=== PATIENT | female | born 1960 | race Caucasian/White ===

== ENCOUNTER → 2019-04-04 17:22 | Outpatient (CLI) | payer MEDICARE ==
[~2019-04-04 17:22] MED LIST: AMBIEN10 MG PO; BUSPAR10 MG PO; ESTRACE 0.5 MG0.5 MG PO; LISINOPRIL10 MG PO; METOPROLO; MORPHINE SULFAT15 M4 PO; MORPHINE SULFAT30 M4 PO; MUCINEX600 MG PO; NORVASC5 MG PO; OMNICEF300 MG PO; PROAIR HFA8.5 GM INH; PROVERA2.5 MG PO; SOMA350 MG PO; SONATA10 MG PO; TESSALON PERLE100 MG PO; TOPROL XL50 MG PO; VALTREX1000 MG PO; XANAX1 MG PO; ZANAFLEX4 MG PO; ZOLOFT100 MG PO
== END | disposition home or self-care (01) ==
LOC: D.LABREF 17:22
PROVIDERS: ATTEND Orthopaedic Surgery
DX: M17.12 Unilateral primary osteoarthritis, left knee (principal)

== ENCOUNTER 2019-04-05 12:56 | Inpatient (IN) | payer MEDICARE ==
[~2019-04-05] VITALS: Ht 167.6 cm; Wt 111.8 kg
[2019-05-23] MEDS ORDERED: TRAZODONE HCL150 MG PO (12:57)
[2019-05-24 11:20] LABS: HEMATOCRIT 40.9 % (36.0-48.0); HEMOGLOBIN 13.4 g/dL (12-16); MCH 31.1 pg (26.0-34.0); MCHC 32.8 g/dL (31.0-37.0); MCV 94.9 fL (80.0-100.0); RBC 4.31 10x6/uL (4.00-5.40); RDW 13.2 % (11.5-14.5); WBC 9.3 10x3/uL (4.8-10.8)
[2019-05-24 11:21] LABS: BASOPHILS 0.2 % (0-2); IMMATURE GRANULOCYTES 0.2 % (0-5); LYMPHOCYTES 19.5 % (15-50); MONOCYTES 8.1 % (2-11)
[2019-05-24 11:25] LABS: PLATELET COUNT 321 10x3/uL (130-400)
[2019-05-24] MEDS ORDERED: GEODON40 MG PO (11:27)
[2019-05-24] MEDS ORDERED: VALTREX1000 MG PO (11:28)
[2019-05-24] MEDS ORDERED: PEPCID AC20 MG PO (11:29)
[2019-05-24] MEDS ORDERED: IBUPROFEN800 MG PO (11:32)
[2019-05-24] MEDS ORDERED: CYMBALTA60 MG PO (11:32)
[2019-05-24] MEDS ORDERED: ATARAX 25 MG TA25 MG PO (11:33)
[2019-05-24] MEDS ORDERED: SEROQUEL100 MG PO (11:34)
[2019-05-24] MEDS ORDERED: LISINOPRIL40 MG PO (11:36)
[2019-05-24] MEDS ORDERED: HYDROCODON-ACE1 EAC7 PO (11:36)
[2019-05-24] MEDS ORDERED: OMEPRAZOLE40 MG PO (11:37)
[2019-05-24] MEDS ORDERED: LIPITOR10 MG PO (11:37)
[2019-05-24 11:38] LABS: APTT 30.4 SECONDS (22.8-39.4); INR 0.97 (0.85-1.17); PROTIME 12.8 SECONDS (11.6-15.0)
[2019-05-24 11:39] LABS: ANION GAP 9.1 mmol/L (8-16); CARBON DIOXIDE 32.9 mmol/L (21.0-32.0); CREATININE - SERUM 1.1 mg/dL (0.6-1.3)
[2019-05-24 12:11] LABS: APPEARANCE CLEAR (CLEAR); BACTERIA FEW /hpf (NEGATIVE); BILIRUBIN NEGATIVE (NEGATIVE); COLOR YELLOW (YELLOW); EPITHELIAL CELLS OCC /hpf (0-5); GLUCOSE NEGATIVE (NEGATIVE); KETONE NEGATIVE (NEGATIVE); NITRITE NEGATIVE (NEGATIVE); PROTEIN NEGATIVE (NEGATIVE); RED CELLS - URINE 0-5 /hpf (0-5); UROBILINOGEN NORMAL (NORMAL)
[2019-05-24 12:12] LABS: WHITE CELLS - URINE RARE /hpf (NEGATIVE)
[2019-05-29 08:59] VITALS: BP 112/92; BMI 39.8
--- NOTE | 2019-05-29 10:48 | NUR ---
PREPPED FROM MID THIGH TO TOES WITH ALCOHOL AND HIBACLENS. STERILE GOWNED AND GLOVED AND PREPPED AGAIN FROM MID THIGH TO TOES WITH CHLORAPREP. ADMINISTERED TOBRA AND VANC TO BACK FIELD WHILE STERILE GLOVED.
[2019-05-29 11:43] VITALS: BP 106/67
--- NOTE | 2019-05-29 11:47 | NUR ---
PT RECIEVED FROM RECOVERY TO ROOM 2213 VIA BED. PT AWAKE ALERT AND ORIENTED. IV TO RIGHT FOREARM INTACT. DRESSING TO LEFT LOWER EXTREMITY C/D/I ICE PACK INTACT. PERIPHERAL PULSE PALPABLE. ORIENTED TO ROOM, CL AND BED CONTROLS. CL WITHIN REACH. ENCUORAGED TO CALL WITH NEEDS. CONTINUE POC
[2019-05-29 13:25] VITALS: BP 106/67; BMI 39.8
[2019-05-29 16:14] VITALS: BP 114/74
--- NOTE | 2019-05-29 19:25 | NUR ---
PT SITTING UP IN BED WITHOUT DISTRESS, AOX4. SPOUSE AT BEDSIDE. IV RIGHT FA INFUSING 1/2NS @ 100. ON ROOM AIR. LUNGS CTA. BOWEL SOUNDS ACTIVE. STATES LEFT LEG IS STILL NUMB. IN CPM AT THIS TIME. SCD TO RIGHT LEG. BED ALARM ON. NON SLIP SOCKS IN PLACE. REFUSES YELLOW GOWN, WANTS TO PUT ON HER OWN GOWN. DENIES OTHER NEEDS AT THIS TIME. CL IN REACH, WILL CTM
[2019-05-29 21:03] VITALS: BP 100/57
--- NOTE | 2019-05-29 21:30 | NUR ---
PT STATES PAIN 7/10 IN LEFT KNEE AFTER COMING OFF CPM. GAVE NORCO ORDERED. APPLIED ICE PACK TO KNEE. DRESSING CDI. PEDAL PULSES INTACT. DENIES OTHER NEEDS. WILL CTM
--- NOTE | 2019-05-29 23:15 | NUR ---
PT STATES PAIN IN LEFT KNEE 12/17. GAVE TORADOL ORDERED. DENIES OTHER NEEDS. WILL CTM
[2019-05-30 00:56] VITALS: BP 112/65
[2019-05-30 05:46] VITALS: BP 110/66
[2019-05-30 06:39] LABS: BASOPHILS 0.1 % (0-2); EOSINOPHILS 0.1 % (0-7); HEMOGLOBIN 9.8 g/dL (12-16); IMMATURE GRANULOCYTES 0.4 % (0-5); LYMPHOCYTES 10.7 % (15-50); MCH 30.3 pg (26.0-34.0); MCHC 31.6 g/dL (31.0-37.0); MEAN PLATELET VOLUME 9.4 fL (7.4-10.4); MONOCYTES 11.8 % (2-11); NEUTROPHILS 76.9 % (40-80); PLATELET COUNT 261 10x3/uL (130-400); RBC 3.23 10x6/uL (4.00-5.40); RDW 13.3 % (11.5-14.5); WBC 12.9 10x3/uL (4.8-10.8)
[2019-05-30 06:55] LABS: ANION GAP 12.4 mmol/L (8-16); CALCIUM 7.4 mg/dL (8.5-10.1); CARBON DIOXIDE 24.9 mmol/L (21.0-32.0); CREATININE - SERUM 1.3 mg/dL (0.6-1.3); MAGNESIUM - SERUM 1.7 mg/dL (1.8-2.4); POTASSIUM - SERUM 4.3 mmol/L (3.5-5.1)
--- NOTE | 2019-05-30 07:55 | NUR ---
PT RESTING IN QUIETLY IN BED WITH FAMILY AT BEDSIDE. RESP EVEN AND UNLABORED. REPORTS PAIN 4/10 AT THIS TIME. CPM IN PLACE TO LOWER LEFT EXTREMITY. PULSES PALPABLE. IV TO RIGHT FOREARM INTACT. SITE WITHOUT REDENSS OR EDEMA SALINE LOCKED AT THIS TIME. GOOD BLOOD RETURN, EASILY FLUSHED WITH SALINE. DENIES FURTHER NEEDS AT THIS TIME. CL WITHIN REACH. ENCOURAGED TO CALL WITH NEEDS. CONTINUE POC
[2019-05-30 08:30] VITALS: BP 99/60
[2019-05-30 15:06] VITALS: BP 100/51
[2019-05-30 16:45] VITALS: BP 112/52
--- NOTE | 2019-05-30 19:30 | NUR ---
PT SITTING UP IN BED WITHOUT DISTRESS, AOX4. DAUGHTER AND AT BEDSIDE. IV RIGHT FA SL. SCD TO RIGHT LEG. PLEXI TO LEFT. LEFT LEG IN CPM. DRESSING TO LEFT KNEE CDI. STATES PAIN 5/10 AT THIS TIME. DENIES NEEDS. CL IN REACH, WILL CTM
[2019-05-30 20:00] VITALS: BP 109/50
--- NOTE | 2019-05-30 21:30 | NUR ---
CPM TAKEN OFF AT THIS TIME. STATES PAIN 5/10. HS MEDS GIVEN AT THIS TIME. DENIES OTHER NEEDS. CL IN REACH, WILL CTM
[2019-05-31] VITALS: BP 117/66
[2019-05-31 04:00] VITALS: BP 100/54
[2019-05-31 05:16] LABS: BASOPHILS 0.3 % (0-2); EOSINOPHILS 1.8 % (0-7); HEMATOCRIT 30.1 % (36.0-48.0); HEMOGLOBIN 9.3 g/dL (12-16); IMMATURE GRANULOCYTES 0.2 % (0-5); LYMPHOCYTES 14.5 % (15-50); MCHC 30.9 g/dL (31.0-37.0); MCV 97.1 fL (80.0-100.0); MEAN PLATELET VOLUME 9.3 fL (7.4-10.4); MONOCYTES 11.2 % (2-11); PLATELET COUNT 253 10x3/uL (130-400); RDW 13.7 % (11.5-14.5); WBC 10.5 10x3/uL (4.8-10.8)
[2019-05-31 05:24] LABS: CALCIUM 7.5 mg/dL (8.5-10.1); CARBON DIOXIDE 24.9 mmol/L (21.0-32.0); CREATININE - SERUM 1.6 mg/dL (0.6-1.3); MAGNESIUM - SERUM 1.7 mg/dL (1.8-2.4); POTASSIUM - SERUM 3.9 mmol/L (3.5-5.1)
--- NOTE | 2019-05-31 08:45 | NUR ---
PATIENT IN BED WITH IV INTACT. NO COMPLAINTS OR SIGNS OF DISTRESS. EYES CLOSED RESTING QUIETLY. CALL LIGHT WITHIN REACH. FAMILY AT BEDSIDE.
[2019-05-31 08:48] VITALS: BP 145/79
--- NOTE | 2019-05-31 09:30 | NUR ---
PATIENT IN BED WITH EYES CLOSED. FAMILY STATED SHE IS MORE LETHARGIC TODAY THAN YESTERDAY. WENT OVER MEDS WITH PATIENT AND FAMILY. PATIENT STATED SHE DOESNT TAKE GEODON ANYMORE AND ONLY TAKES TRAZADONE PRN FOR SLEEP. GEODON DC'D AND TRAZEDONE CHANGED TO PRN Q HS. ALL OTHER SCHEDULED MEDS GIVEN. CALL LIGHT WITHIN REACH. SCD AND PLEXI PULSE ON.
[2019-05-31 12:48] VITALS: BP 102/62
--- NOTE | 2019-05-31 15:30 | NUR ---
PATIENT DRESSING CHANGED AT THIS TIME DUE TO EXCESSIVE BLEEDING ON BANDAGE. PATIENT TOLERATED WITH SMALL AMOUNT OF PAIN. INCISION WITH MILENA CLEAN AND DRY. NO SIGNS OF INFECTION. BLOOD CLEANED UP WITH NS. NEW AQUACEL DRESSING PLACED AT THIS TIME. PATIENT TOLERATED WITH SMALL AMOUNT OF PAIN. FAMILY AT BEDSIDE. CALL LIGTH WITHIN REACH.
--- NOTE | 2019-05-31 16:27 | NUR ---
OT NOTE: BED MOB WITH MIN ASSIST; SIT TO STAND FROM BED WITH MOD ASSIST; ABLE TO MONIKA GOWN WITH MIN ASSIST; AMB WITH WALKER AND MIN ASSIST FOR IN ROOM AMBULATION. PT REPORTED THAT SHE FELT LIKE SHE WAS GOING TO FAINT. AGREEABLE TO SIT UP IN CHAIR. MORE LETHARGIC THIS PM. RAPHAEL BUTTERFIELD, OTR/L
[2019-05-31 16:40] VITALS: BP 100/51
--- NOTE | 2019-05-31 16:49 | NUR ---
OT NOTE: PT REQUIRED SBA FOR SUPINE TO SIT . PT REQUIRED MIN A /CGA FOR ADL MOB WITH RW. PT COMPLETED UE AROM AX WITH FUNTIONAL RW MANAGEMENT. PT AND FAMILY STATED SHE TIRED SECONDARY TO MEDICATION. DAUGHTER STATED SHE SPOKE WITH NURSING WITH CONCERNS. AFTER PT WALKED [id number] DAUGHTER STATED " MOM THATS GOOD...AT HOME YOU ONLY HAVE TO WALK ABOUT THAT FAR." LATER IN AFTERNOON, OT/PT WENT TO AMBULATE PT. UPON ARRIVAL DAUGHTER STATED " MOM IS MAYBE TO DIZZY TO WALK. BEARD INFORMED DAUGHTER NURSING HAD BEEN CONSULTED AND ENCOURAGED PT TO WALK. PT AMBULATED WITH BEARD PUSHING CHAIR BEHIND PT INCASE OF DIZZINESS. PT STATED I AM ABOUT TO FAINT. SELF LIMITING BEHAVIORS NOTED. [phone] THANK YOU,CHIRAG CONTRERAS
--- NOTE | 2019-05-31 18:44 | NUR ---
PATIENT IN BED WITH CPM ON. NO COMPLAINTS OR SIGNS OF DISTRESS. IV INTACT. CALL LIGHT WITHIN REACH. FAMILY AT BEDSIDE.
[2019-05-31 20:00] VITALS: BP 115/68
--- NOTE | 2019-05-31 21:00 | NUR ---
RESTING IN BED COMFORTABLY WITH UNLABORED BREATHING. IV TO THE RT FOREARM WITH NO REDNESS OR SWELLING. DRESSING TO THE LT KNEE, PULSE PALP. FAMILY VOICED CONCERN FOR PT HEALH SUCH PT SLEEPING ALL DAY AND HAVING BOUTS OF CONFUSION. FAMILY IS ALSO CONCERNED WITH KIDNEY FUNCTION DUE TO MEDICATION. ASSISTED TO BEDSIDE COMMODE AND BACK IN BED. DAUGHTER AT BEDSIDE. DENIES NO OTHER NEEDS AT THIS TIME. CONTINUE PLAN OF CARE.
--- NOTE | 2019-05-31 22:30 | NUR ---
ANSWERED CALL LIGHT. PT SITTING ON SIDE OF BED WITH LT KNEE BLEEDING. REMOVED OLD BANDAGE AND PLACED WHITE BORDER DRESSING OVER MILENA. ABDOMINAL BINDER AND 4X4 WERE PLACED ON TOP. MARY WRAPPED LEG AND ICE PACKS APPLIED. WILL CONTINUE TO MONITOR.
[2019-06-01] VITALS: BP 120/78
--- NOTE | 2019-06-01 03:42 | NUR ---
WOKE UP CONFUSED. STATED THAT SHE DIDN'T KNOW WHERE SHE WAS AT OR WHY SHE WAS IN THE HOSPITAL. RE ORIENTED AND REPOSITIONED. STATES THE SHE IS ANXIOUS AND HER KNEES HURTS. OFFERED MEDS BUT REFUSED. PLACED ICE PACKS ON KNEES. WILL CONTINUE TO MONITOR.
[2019-06-01 04:00] VITALS: BP 106/64
[2019-06-01 06:46] LABS: BASOPHILS 0.2 % (0-2); EOSINOPHILS 1.9 % (0-7); HEMATOCRIT 28.7 % (36.0-48.0); IMMATURE GRANULOCYTES 0.3 % (0-5); LYMPHOCYTES 10.8 % (15-50); MCH 30.2 pg (26.0-34.0); MCHC 31.4 g/dL (31.0-37.0); MCV 96.3 fL (80.0-100.0); MEAN PLATELET VOLUME 9.6 fL (7.4-10.4); MONOCYTES 7.5 % (2-11); NEUTROPHILS 79.3 % (40-80); PLATELET COUNT 213 10x3/uL (130-400); RBC 2.98 10x6/uL (4.00-5.40); RDW 13.8 % (11.5-14.5)
[2019-06-01 06:47] LABS: WBC 16.5 10x3/uL (4.8-10.8)
[2019-06-01 06:49] LABS: ANION GAP 12.3 mmol/L (8-16); CALCIUM 7.8 mg/dL (8.5-10.1); CARBON DIOXIDE 25.2 mmol/L (21.0-32.0); CREATININE - SERUM 1.6 mg/dL (0.6-1.3); MAGNESIUM - SERUM 1.8 mg/dL (1.8-2.4)
[2019-06-01 06:51] LABS: POTASSIUM - SERUM 4.5 mmol/L (3.5-5.1)
--- NOTE | 2019-06-01 08:20 | NUR ---
PATIENT ASSISTED TO BEDSIDE COMMODE X 2 ASSIST AND BACK TO BED AT THIS TIME. IN PAIN. TRIED TO CALL [facility] FOR PAIN MEDS. NO CALL BACK OF YET. PATIENT CPM PLACED BACK ON UNTIL 0900.
[2019-06-01 08:49] VITALS: BP 115/59
--- NOTE | 2019-06-01 09:17 | NUR ---
OT AND PT INTO ROOM TRYING TO GET PATIENT UP TO AMBULATE. PATIENT STATED UNABLE TO AMBULATE BC OF TOO MUCH PAIN. TRIED TO CALL [facility] TO SEE IF PATIENT CAN HAVE ANYTHING ELSE FOR PAIN AT THIS TIME.
[2019-06-01 12:07] VITALS: Ht 167.6 cm; Wt 111.8 kg
[2019-06-01 12:54] VITALS: BP 116/86
[2019-06-01 17:11] LABS: ANION GAP 12.8 mmol/L (8-16); CALCIUM 7.7 mg/dL (8.5-10.1); CARBON DIOXIDE 24.6 mmol/L (21.0-32.0); CREATININE - SERUM 1.6 mg/dL (0.6-1.3); POTASSIUM - SERUM 4.4 mmol/L (3.5-5.1)
[2019-06-01 17:49] VITALS: BP 124/64
--- NOTE | 2019-06-01 17:59 | NUR ---
OT NOTE: AM TREATMENT: PT COMPLETED BED MOB WITH MIN A. PT COMPLETED ADL MOB WITH CGA/MIN A. EARLIER, PT UNABLE TO PARTICIPATE SECONDARY TO PAIN. NOTIFIED NURSING. PM VISIT: PT COMPLETED TOILETING WITH MIN/MOD A FOR HYGIENE. PT COMPLETED SIT TO STAND WITH CGA. FAMILY REQUESTED BARIATRIC BSC. BEARD ATTEMPTED TO LOCATE BSC WITH NO SUCCESS. BEARD INFORMED NURSING. NURSING STATED THAT THEY WERE HAVING TROUBLE LOCATING BARIATRIC BSC AND STATED [facility] HAS BARIATRIC BSC. PT FAMILY STATED THEY HAD SPOKEN WITH SEVERAL STAFF MEMBERS IN PAST TWO DAYS. BEARD CALLED [employer] MEMBER CONCERNING LOCATING BSC. BSC LOCATED WITH NO BUCKET. NURSING STAFF STATED THEY WOULD LOCATE BUCKET FOR BSC. PT FAMILY STATED THEY WERE CONCERNED ABOUT POSSIBLE BRUISING THAT MIGHT OCCUR BECAUSE OF USING STANDARD BSC THE PREVIOUS DAY. BEARD NOTIFIED NURSING. [phone] THANK YOU,CHIRAG CONTRERAS
[2019-06-01 20:00] VITALS: BP 137/76
--- NOTE | 2019-06-01 20:00 | NUR ---
RESTING IN BED COMFORTABLY WITH CPM IN PLACE. IV TO THE RT FOREARM WITH NO REDNESS OR SWELLING. CLEAN/DRY DRESSING TO THE LT KNEE, PULSE PALP. ASSISTED TO THE BATHROOM AND BACK IN BED. DENIES NO OTHER NEEDS AT THIS TIME. CONTINUE PLAN OF CARE.
[2019-06-01 22:50] LABS: APPEARANCE CLEAR (CLEAR); BILIRUBIN NEGATIVE (NEGATIVE); COLOR STRAW (YELLOW); GLUCOSE NEGATIVE (NEGATIVE); KETONE NEGATIVE (NEGATIVE); NITRITE NEGATIVE (NEGATIVE); PROTEIN 1+ mg/dL (NEGATIVE); UROBILINOGEN NORMAL (NORMAL)
[2019-06-01 22:51] LABS: BACTERIA FEW /hpf (NEGATIVE); EPITHELIAL CELLS 0-5 /hpf (0-5); RED CELLS - URINE 0-5 /hpf (0-5); WHITE CELLS - URINE 0-5 /hpf (NEGATIVE)
[2019-06-02 04:00] VITALS: BP 112/61
[2019-06-02 05:43] LABS: BASOPHILS 0.1 % (0-2); EOSINOPHILS 3.7 % (0-7); HEMATOCRIT 28.1 % (36.0-48.0); HEMOGLOBIN 8.8 g/dL (12-16); IMMATURE GRANULOCYTES 0.3 % (0-5); LYMPHOCYTES 14.9 % (15-50); MCH 30.1 pg (26.0-34.0); MCHC 31.3 g/dL (31.0-37.0); MCV 96.2 fL (80.0-100.0); MEAN PLATELET VOLUME 9.5 fL (7.4-10.4); MONOCYTES 9.9 % (2-11); NEUTROPHILS 71.1 % (40-80); RBC 2.92 10x6/uL (4.00-5.40); RDW 13.7 % (11.5-14.5)
[2019-06-02 05:52] LABS: PLATELET COUNT 270 10x3/uL (130-400); WBC 10.4 10x3/uL (4.8-10.8)
[2019-06-02 06:04] LABS: ANION GAP 14.6 mmol/L (8-16); CALCIUM 8.3 mg/dL (8.5-10.1); CARBON DIOXIDE 25.1 mmol/L (21.0-32.0); CREATININE - SERUM 1.4 mg/dL (0.6-1.3); POTASSIUM - SERUM 4.7 mmol/L (3.5-5.1)
--- NOTE | 2019-06-02 08:25 | NUR ---
PT LYING IN BED WITH DAUGHTER AT BEDSIDE. BONNIE HILL AT BEDSIDE DISCUSSING PT NEEDS. AFTER ARROW POINT ATTACHER LEFT PT TURNED TO DAUGHTER AND STATED " I DIDN'T KNOW [facility] COMES TO THE HOSPITAL. THAT WAS MY DR'S NURSE." BOTH DAUGHTER AND I TOLD PT THAT IS [facility] LOWE NURSE AND PT CONTINUED TO ARGUE STATING WE WERE WRONG THEN PT GOT UPSET AND STATED NEVERMIND YOU DONT KNOW WHAT YOU'RE TALKING ABOUT. ADMINISTERED SCHEDULED MEDS FOR PT AND TOLD HER SHE HAD 30 MINUTES LEFT ON CPM MACHINE. NO OTHER NEEDS AT THIS TIME. CONTINUE WITH PLAN OF CARE. CL IN REACH
[2019-06-02 09:06] LABS: % SATURATION 7 % (15-55); IRON 18 ug/dl (35-150); TOTAL IRON BIND CAPACITY 230 ug/dl (260-445); UNSAT IRON BIND CAPACITY 212 ug/dl (150-375)
[2019-06-02 09:16] VITALS: BP 100/68
--- NOTE | 2019-06-02 12:52 | NUR ---
ADMINISTERED SCHEDULED MEDS FOR PT, PT AND DAUGHTER ASKED IF PT HAS RECEIVED PAIN MEDS YET, ADMINISTERED REQUESTED PAIN MEDS AT 1030. PT DAUGHTER STATED SHE COULDN'T REMEMBER. PT STILL CONFUSED AND ASKED WHY SHE HAD TO WALK IF SHE NEEDED REST AND WAS HURTING. WENT OVER BENEFITS OF PHYSICAL THERAPY AGAIN WITH PT, NO OTHER NEEDS VOICED, CONTINUE WITH PLAN OF CARE
[2019-06-02 13:10] VITALS: BP 116/49
--- NOTE | 2019-06-02 16:26 | NUR ---
The patient says she had a left knee replacement Wednesday, she says her pain is under control and she is denies needs. She has a bandage to the knee and some bruising in noted to the outer aspect of her knee.
[2019-06-02 18:04] VITALS: BP 116/69
--- NOTE | 2019-06-02 18:32 | MORECARE ---
CASE MANAGEMENT DISCHARGE SUMMARY PATIENT: TYLER CASANOVA UNIT: [id number] ADM DATE: 05/29/19 AGE: 58 : 64 SEX: F ROOM/BED: D.2213 AUTHOR: PATEL GUTIERREZ PHYSICIAN: REFERRING PHYSICIAN: LOPEZ DOVER MD DATE OF SERVICE: 06/02/19 Discharge Plan Patient Name: TYLER CASANOVA Facility: [facility]:[place] : 1960 Planned Disposition: Inpatient Rehab Anticipated Discharge Date: Discharge Date: Expected LOS: Initial Reviewer: [email or web address] Initial Review Date: 05/29/2019 Generated: 06/02/19 7:31 pm Comments DCP- Discharge Planning Updated by [email or web address]: Shanon Childers on 05/31/19 2:[address] CM explained IMM to patient and family, patient received a copy, and additional copy placed on the chart. DCPIA - Discharge Planning Initial Assessment Updated by [email or web address]: Amanda Casanova on 06/02/19 6:32 pm * Is the patient Alert and Oriented? Yes * How many steps to enter\exit or inside your home? * PCP [facility] * Pharmacy [facility] * Preadmission Environment Home Alone * ADLs Independent * Equipment Bedside Commode Walker * Other Equipment CPM * List name and contact numbers for known caregivers / representatives who currently or will assist patient after discharge: LOPEZ CASANOVA (EX ) [phone] * Verbal permission to speak to the caregivers and representatives has been obtained from the patient. Yes * Community resources currently utilized None * Additional services required to return to the preadmission environment? Yes * Can the patient safely return to the preadmission environment? No * Has this patient been hospitalized within the prior 30 days at any hospital? No Coverage Notice Reviewer: [id number] - Shanon Childers Notice Issued Date-Time: 05/31/2019 3:30 Notice Type: IM Discharge Notice Notice Delivered To: Patient Relationship to Patient: Associate Financial Representative Name: Delivery Method: HAND - Hand Delivered Roya Days: Prior Verbal Notification: Recipient Understood Notice: Yes Recipient Signature: Yes Med Rec Note Co-signed by Attending: Coverage Notice Comment: Patient Name: TYLER CASANOVA Page [phone] at 1832 All edits/amendments must be made on the electronic document DICTATION DATE: 06/02/191830 PARTS PRODUCT ANALYST: NIKITA 06/02/191830 RPT#: [id number] DC DATE: STATUS: ADM IN [facility] [address] [place] [address] END OF REPORT
--- NOTE | 2019-06-02 18:41 | MORECARE ---
CASE MANAGEMENT DISCHARGE SUMMARY PATIENT: TYLER CASANOVA UNIT: [id number] ADM DATE: 05/29/19 AGE: 58 : 64 SEX: F ROOM/BED: D.2213 AUTHOR: BRENDA,DOC PHYSICIAN: REFERRING PHYSICIAN: LOPEZ DOVER MD DATE OF SERVICE: 06/02/19 Discharge Plan Patient Name: TYLER CASANOVA Facility: [facility]:[place] : 1960 Planned Disposition: Inpatient Rehab Anticipated Discharge Date: Discharge Date: Expected LOS: Initial Reviewer: [id number] Initial Review Date: 05/29/2019 Generated: 06/02/19 7:41 pm Comments DCP- Discharge Planning Updated by [email or web address]: Amanda Casanova on 06/02/19 5:[address] Patient Name: TYLER CASANOVA Admission Status: Elective Accout number: [id number] Admission Date: 05-29-2019 : 1960 Admission Diagnosis: Attending: LOPEZ DOVER Current LOS: 4 Anticipated DC Date: Planned Disposition: Inpatient Rehab Primary Insurance: MEDICARE A & B Discharge Planning Comments: CM met with patient to complete initial dc planning assessment. CM educated patient on the CM role and verbal consent given by patient to complete assessment. Patient lives at home where she was independent with her care. At discharge patient would like to go to inpatient rehab at [facility] and feels this is a safe discharge. CM discussed availability rehab services, and medical equipment. She has a walker, CPM and BSC. Patient denied known discharge needs at this time. I have notified Valeria with Inpatient rehab about the referral. CM will continue to follow and will assist as needed with dc plans/needs. Bailer Tenders Supervisor: Amanda Casanova DCP- Discharge Planning Updated by [email or web address]: Shanon Childers on 05/31/19 2:[address] CM explained IMM to patient and family, patient received a copy, and additional copy placed on the chart. DCPIA - Discharge Planning Initial Assessment Updated by [email or web address]: Amanda Casanova on 06/02/19 6:32 pm * Is the patient Alert and Oriented? Yes * How many steps to enter\exit or inside your home? * PCP [facility] * [facility] * Preadmission Environment Home Alone * ADLs Independent * Equipment Bedside Commode Walker * Other Equipment CPM * List name and contact numbers for known caregivers / representatives who currently or will assist patient after discharge: LOPEZ CASANOVA (EX ) [phone] * Verbal permission to speak to the caregivers and representatives has been obtained from the patient. Yes * Community resources currently utilized None * Additional services required to return to the preadmission environment? Yes * Can the patient safely return to the preadmission environment? No * Has this patient been hospitalized within the prior 30 days at any hospital? No Coverage Notice Reviewer: [id number] - Shanon Childers Notice Issued Date-Time: 05/31/2019 3:30 Notice Type: IM Discharge Notice Notice Delivered To: Patient Relationship to Patient: Creative Coordinator Name: Delivery Method: HAND - Hand Delivered Roya Days: Prior Verbal Notification: Recipient Understood Notice: Yes Recipient Signature: Yes Med Rec Note Co-signed by Attending: Coverage Notice Comment: Last DP export: 06/02/19 5:32 p Patient Name: TYLER CASANOVA Page [phone] at 1841 All edits/amendments must be made on the electronic document DICTATION DATE: 06/02/191840 DRILLING MACHINE OPERATOR: NIKITA 06/02/191840 RPT#: [id number] DC DATE: STATUS: ADM IN [facility] [address] [place] [address] END OF REPORT
--- NOTE | 2019-06-02 19:15 | NUR ---
PATIENT ALERT AND ORIENTED. FAMILY AT BEDSIDE. DENIES NEEDS AT THIS TIME. CPM ON. CALL LIGHT IN REACH. CPOC.
--- NOTE | 2019-06-02 19:56 | NUR ---
OT NOTE: AM TREATMENT: PT COMPLETED SUPINE TO SIT WITH SBA. PT COMPLETED EOB SITTING WITH SBA. PT COMPLETED SIT TO STAND WITH CGA. PM TREATMENT: PT COMPLETED ADL MOB WITH RW WITH CGA. PT COMPLETED BED MOB TASKS WITH SBA. PT COMPLETED BUE AROM AX FOR WALKER MANAGEMENT. PT DID WELL TODAY AND EXHIBITED INCREASED PARTICIPATION. [phone]; [phone] THANK YOU,CHIRAG CONTRERAS
[2019-06-02 20:00] VITALS: BP 104/64
--- NOTE | 2019-06-02 22:46 | NUR ---
Rehab Note- Acute Inpatient Rehab prescreen order recieved. The patient is a good inpatient rehab candidate. Will accept the patient to [facility] Acute Inpatient Rehab when medicall stable and ready for discharge from the acute hospital. Thank you for this referral! Valeria San RN Clinical Liaison, [facility] Rehab
[2019-06-03] VITALS: BP 129/79
[2019-06-03 04:48] VITALS: BP 95/69
--- NOTE | 2019-06-03 05:29 | NUR ---
ADMINISTERED PRN PAIN MEDICINE PER REQUEST.
[2019-06-03 07:06] LABS: CALCIUM 8.2 mg/dL (8.5-10.1); CARBON DIOXIDE 28.6 mmol/L (21.0-32.0); CREATININE - SERUM 1.1 mg/dL (0.6-1.3); MAGNESIUM - SERUM 1.9 mg/dL (1.8-2.4); POTASSIUM - SERUM 4.6 mmol/L (3.5-5.1)
[2019-06-03 07:15] LABS: BASOPHILS 0.2 % (0-2); EOSINOPHILS 5.1 % (0-7); HEMATOCRIT 27.5 % (36.0-48.0); HEMOGLOBIN 8.7 g/dL (12-16); IMMATURE GRANULOCYTES 0.4 % (0-5); MCH 30.2 pg (26.0-34.0); MCHC 31.6 g/dL (31.0-37.0); MCV 95.5 fL (80.0-100.0); MONOCYTES 11.5 % (2-11); NEUTROPHILS 64.8 % (40-80); PLATELET COUNT 266 10x3/uL (130-400); RBC 2.88 10x6/uL (4.00-5.40); RDW 13.5 % (11.5-14.5); WBC 8.4 10x3/uL (4.8-10.8)
--- NOTE | 2019-06-03 07:41 | NUR ---
PT IS RESTING IN BED WITH EYES OPEN. RESPIRATIONS ARE EVEN AND UNLABORED. CPM IN ON LLE. DRESSING TO LEFT KNEE IS CDI. PEDAL PULSES PALP. CAP REFILL < 3. PT DENIES PRESENCE OF NUMBNESS/TINGLING. FAMILY AT BEDSIDE. PT DENIES PRESENCE OF PAIN/N/V AT THIS TIME. PT IS AAO X 4. BED IS IN THE LOWEST POSITION. CALL LIGHT AND BEDSIDE TABLE ARE WITHIN REACH. SIDE RAILS X .2 PT DENIES FURTHER NEEDS. WILL CONT TO MONITOR.
[2019-06-03] MEDS ORDERED: ELIQUIS2.5 MG PO (10:09)
[2019-06-03] MEDS ORDERED: HYDROCODON-ACE1 EA10 PO (10:09)
[2019-06-03] MEDS ORDERED: NIFEREX-150 CAP1 CA3 PO (10:09)
[2019-06-03] MEDS ORDERED: Stresstabs With Zinc PO (10:10)
--- NOTE | 2019-06-03 12:42 | NUR ---
REPORT CALLED TO RECEIVING REHAB NURSE. NO FURTHER QUESTOINS/CONCERNS/NEEDS AT THIS TIME.
--- NOTE | 2019-06-03 12:58 | NUR ---
ALL DISCHARGE INSTRUCTIONS COVERED WITH PT AND PT FAMILY MEMBER. PT AND PT FAMILY MEMBER WITHOUT QUESTIONS/CONCERNS/NEEDS AT THIS TIME. PIV TO RIGHT FA REMOVED WITH CATHETER TIP INTACT. DRESSING APPLIED. ALL DISCHARGE PAPERS SIGNED. SIGNED DC PAPERS PLACED IN PT CHART. PT TO NOTIFY NURSE WHEN READY FOR TRANSPORT TO REHAB.
--- NOTE | 2019-06-03 13:36 | NUR ---
PT TRANSPORTED FROM ROOM VIA WHEELCHAIR FOR TRANSPORT TO REHAB. PT DENIES FURTHER QUESTIONS/CONCENRS/NEEDS.
--- NOTE | 2019-06-05 08:50 | MORECARE ---
CASE MANAGEMENT DISCHARGE SUMMARY PATIENT: TYLER CASANOVA UNIT: [id number] ADM DATE: 05/29/19 AGE: 58 : 64 SEX: F ROOM/BED: D.2213 AUTHOR: BRENDA,DOC PHYSICIAN: REFERRING PHYSICIAN: LOPEZ DOVER MD DATE OF SERVICE: 06/05/19 Discharge Plan Patient Name: TYLER CASANOVA Facility: [facility]:[place] : 1960 Planned Disposition: Inpatient Rehab Anticipated Discharge Date: Discharge Date: 06/03/2019 Expected LOS: Initial Reviewer: [id number] Initial Review Date: 05/29/2019 Generated: 06/05/19 9:50 am Comments DCP- Discharge Planning Updated by [email or web address]: Amanda Casanova on 06/02/19 5:[address] Patient Name: TYLER CASANOVA Admission Status: Elective Accout number: [id number] Admission Date: 05-29-2019 : 1960 Admission Diagnosis: Attending: LOPEZ DOVER Current LOS: 4 Anticipated DC Date: Planned Disposition: Inpatient Rehab Primary Insurance: MEDICARE A & B Discharge Planning Comments: CM met with patient to complete initial dc planning assessment. CM educated patient on the CM role and verbal consent given by patient to complete assessment. Patient lives at home where she was independent with her care. At discharge patient would like to go to inpatient rehab at [facility] and feels this is a safe discharge. CM discussed availability rehab services, and medical equipment. She has a walker, CPM and BSC. Patient denied known discharge needs at this time. I have notified Valeria with Inpatient rehab about the referral. CM will continue to follow and will assist as needed with dc plans/needs. Powder Guard: Amanda Casanova DCP- Discharge Planning Updated by [email or web address]: Shanon Childers on 05/31/19 2:[address] CM explained IMM to patient and family, patient received a copy, and additional copy placed on the chart. DCPIA - Discharge Planning Initial Assessment Updated by [email or web address]: Amanda Casanova on 06/02/19 6:32 pm * Is the patient Alert and Oriented? Yes * How many steps to enter\exit or inside your home? * PCP [facility] * Pharmacy [facility] * Preadmission Environment Home Alone * ADLs Independent * Equipment Bedside Commode Walker * Other Equipment CPM * List name and contact numbers for known caregivers / representatives who currently or will assist patient after discharge: LOPEZ CASANOVA (EX ) [phone] * Verbal permission to speak to the caregivers and representatives has been obtained from the patient. Yes * Community resources currently utilized None * Additional services required to return to the preadmission environment? Yes * Can the patient safely return to the preadmission environment? No * Has this patient been hospitalized within the prior 30 days at any hospital? No Coverage Notice Reviewer: [id number] Nandini Childers Notice Issued Date-Time: 05/31/2019 3:30 Notice Type: IM Discharge Notice Notice Delivered To: Patient Relationship to Patient: Adhesive Sprayer Name: Delivery Method: HAND - Hand Delivered Roya Days: Prior Verbal Notification: Recipient Understood Notice: Yes Recipient Signature: Yes Med Rec Note Co-signed by Attending: Coverage Notice Comment: Last DP export: 06/02/19 5:41 p Patient Name: TYLER CASANOVA Page [phone] at 0850 All edits/amendments must be made on the electronic document DICTATION DATE: 06/05/19 0850 BELT MAKER HELPER: NIKITA 06/05/19 0850 RPT#: [id number] DC DATE:06/03/19 STATUS: DIS IN [facility] [address] [place] [address] END OF REPORT
--- NOTE | 2019-06-05 17:02 | OP ---
PATIENT NAME: TYLER CASANOVA MEDICAL RECORD: [id number] :[birth year] LOCATION:[facility] ADMISSION DATE:05/29/19 SURGEON: LOPEZ DOVER MD DATE OF OPERATION: 05/29/2019 PREOPERATIVE DIAGNOSIS: Degenerative arthritis, left knee. POSTOPERATIVE DIAGNOSIS: Degenerative arthritis, left knee. PROCEDURE: Left total knee arthroplasty. SURGEON: Lopez Dover MD RESTAURANT AREA MANAGER: Dre Knowles. INTRAOPERATIVE COMPLICATIONS: None. 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 OPERATIVE SUMMARY IN DETAIL: After obtaining the appropriate preoperative orthopedic surgery consent as well as anesthetic consultation, evaluation and clearance, the patient was brought to the operating room and placed on the operating table in a supine position. After general laryngeal mask airway was administered, tourniquet was placed on the proximal aspect of the left upper extremity. Left lower extremity was then prepped and draped in routine sterile fashion. At this point, appropriate timeout was taken and agreed upon by all given the patient's unique identifiers. The leg was elevated and exsanguinated, tourniquet inflated to 350 mmHg. Routine midline incision was taken down for paramedian arthrotomy. Paramedian arthrotomy was performed. Patella was everted and distal soft tissues were exposed. Soft tissue excision was done in the usual fashion. A distal intramedullary guide hole was created for distal femoral cuts. After the distal femoral cuts had been completed, the proximal tibia was exposed in its entirety. Further soft tissue excision was then done followed by this, intramedullary guide hole was created for intramedullary guided cutting. After the intramedullary guided cutting was made, the appropriate measurements were taken. Distal femoral chamfer cuts were made. Having completed this, the trials were then put into place. After the appropriate trial was put into place, taken through range of motion and found to be stable in all planes. Final distal femoral and proximal tibial preparations were made. At this point, the arthritic surface of the patella was excised in preparation for patellar resurfacing. Having completed final patellar resurfacing preparations, the knee was irrigated in pulsatile lavage fashion. Final components were then press-fit into place in this young female with excellent stability. The knee was taken through range of motion, good patellar tracking was also noted. The knee was then filled with a gram of vancomycin and a gram of tobramycin and the paramedian arthrotomy was closed by Dre Knowles APN using #2 Ethibond. This was then followed by #1 Vicryl, 2-0 Vicryl and skin milly. Sterile dressings were applied. Tourniquet was deflated. The patient was awakened and taken to recovery room in stable condition. All final needle and sponge counts were correct. TRANSINT:[id number] Voice Confirmation ID: [id number] DOCUMENT ID: [id number] OPERATIVE REPORT [id number] TYLER CASANOVA MD, LOPEZ BELTRÁN at 1702 CC: [id number] DICTATION DATE: 06/04/19 1147 SUPERVISOR IN CHARGE: 06/04/19 1547 DIS IN 06/03/19 [id number] [place] [address]
[2019-06-08] MEDS ORDERED: BUSPAR 15 MG TA15 MG PO (15:17)
[2019-06-08] MEDS ORDERED: TRAZODONE HCL150 MG PO (15:18)
== END 2019-06-03 13:37 | DRG 469 ==
LOC: D.SDCHOLD 05-24 10:00 → D.MS 05-29 08:30 → D.SDCHOLD 05-29 08:30 → D.MS 05-29 11:28 → D.SDCHOLD 05-29 13:30 → D.MS 06-03 13:37
PROVIDERS: Family Medicine; Internal Medicine Nephrology; ADMIT Orthopaedic Surgery; ATTEND Orthopaedic Surgery
PROC: 0SRD0J9 Replacement of Left Knee Joint with Synthetic Substitute, Cemented, Open Approach (ICD-10-PCS; principal; 2019-05-29 10:30)
DX: M17.12 Unilateral primary osteoarthritis, left knee (principal); G93.41 Metabolic encephalopathy; N17.9 Acute kidney failure, unspecified; D62 Acute posthemorrhagic anemia; I10 Essential (primary) hypertension

== ENCOUNTER → 2019-07-03 16:21 | Outpatient (CLI) | payer MEDICARE ==
[2019-06-03 15:02] VITALS: BMI 45.9
== END | disposition home or self-care (01) ==
LOC: D.US 16:21
PROVIDERS: ATTEND Clinical Nurse Specialist Family Health
DX: R22.42 Localized swelling, mass and lump, left lower limb (principal)

== ENCOUNTER → 2019-08-29 16:55 | Outpatient (CLI) | payer MEDICARE ==
[2019-06-03 15:02] VITALS: BMI 45.9
[~2019-08-29 16:55] MED LIST changes: +ATARAX 25 MG TA25 MG PO; +BUSPAR 15 MG TA15 MG PO; +CYMBALTA60 MG PO; +ELIQUIS2.5 MG PO; +GEODON40 MG PO; +HYDROCODON-ACE1 EA10 PO; +HYDROCODON-ACE1 EAC7 PO; +IBUPROFEN800 MG PO; +LIPITOR10 MG PO; +LISINOPRIL40 MG PO; +NIFEREX-150 CAP1 CA3 PO; +OMEPRAZOLE40 MG PO; +PEPCID AC20 MG PO; +SEROQUEL100 MG PO; +Stresstabs With Zinc PO; +TRAZODONE HCL150 MG PO
[2019-08-29 17:01] LABS: BASOPHILS 0.3 % (0-2); EOSINOPHILS 5.2 % (0-7); HEMATOCRIT 40.4 % (36.0-48.0); HEMOGLOBIN 12.5 g/dL (12-16); IMMATURE GRANULOCYTES 0.3 % (0-5); LYMPHOCYTES 21.9 % (15-50); MCH 28.9 pg (26.0-34.0); MCHC 30.9 g/dL (31.0-37.0); MCV 93.5 fL (80.0-100.0); MEAN PLATELET VOLUME 9.5 fL (7.4-10.4); MONOCYTES 7.3 % (2-11); PLATELET COUNT 331 10x3/uL (130-400); RBC 4.32 10x6/uL (4.00-5.40); RDW 14.3 % (11.5-14.5); WBC 7.6 10x3/uL (4.8-10.8)
[2019-08-29 18:28] LABS: ERYTHROCYTE SEDIMENTATION RATE 16 mm/hr (0-30)
== END | disposition home or self-care (01) ==
LOC: D.LABREF 16:55
PROVIDERS: ATTEND Orthopaedic Surgery
DX: M25.562 Pain in left knee (principal)

== ENCOUNTER → 2020-08-20 09:49 | Outpatient (CLI) | payer MEDICARE, MEDICAID ==
[2019-06-03 15:02] VITALS: BMI 45.9
== END | disposition home or self-care (01) ==
LOC: D.NM 09:49
PROVIDERS: ATTEND Clinical Nurse Specialist Family Health
DX: M25.562 Pain in left knee (principal)